=== PATIENT | male | born 1975 | race Two or more races ===

== ENCOUNTER 2025-07-10 08:35 | Day surgery (SDC) | payer BC ==
[2025-07-09 10:59] LABS: Hematocrit 44.7 % (41.0-53.0); Hemoglobin 15.1 g/dL (13.5-17.5); Mean Corpuscular Hemoglobin 31.4 pg (28.0-32.0); Mean Corpuscular Volume 92.8 fL (80.0-100.0); Nucleated Red Blood Cells % 0.2 %
[2025-07-09 11:22] LABS: INR 1.12 (0.9-1.15); Partial Thromboplastin Time 30.0 SEC (24.5-34.5); Prothrombin Time 11.7 sec (9.3-11.8)
[2025-07-09 11:40] LABS: Alanine Aminotransferase 16 U/L (7-40); Albumin 4.4 g/dL (3.2-4.8); Alkaline Phosphatase 49 U/L (46-116); Anion Gap 6 (5-15); BUN/Creatinine Ratio 8.5 (10.0-20.0); Blood Urea Nitrogen 10 mg/dL (9-23); Calcium 9.5 mg/dL (8.7-10.4); Carbon Dioxide 28 mmol/L (20-31); Chloride 106 mmol/L (98-107); Glucose 87 mg/dL (74-106); Potassium 4.5 mmol/L (3.5-5.1); Sodium 140 mmol/L (136-145); Total Protein 7.5 g/dL (5.7-8.2)
[2025-07-09 11:41] LABS: Bilirubin, Total 0.9 mg/dL (0.2-1.0)
[2025-07-09 11:50] LABS: Urine Protein, UAD Negative (Negative)
[~2025-07-10] VITALS: Ht 167.6 cm; Wt 68.0 kg
[2025-07-10] MEDS ORDERED: ceFAZolin 2 GM/D5W50ml 50 ML IV ONE (09:28)
[2025-07-10] MEDS ORDERED: KETAMINE 50mg/ML 1ml syringe ONE (11:24)
[2025-07-10] MEDS ORDERED: MIDAZOLAM HCL 2MG/2ML 2ml VIAL (1mg/ml) ONE (11:24)
[2025-07-10] MEDS ORDERED: PROPOFOL 10 MG/ML 20 ML IV ONE (11:29)
[2025-07-10] MEDS ORDERED: GLYCOPYRROLATE 0.2 MG/ML 1ML VIAL ONE (11:29)
[2025-07-10] MEDS ORDERED: ONDANSETRON HCL 4 MG/2 ML VIAL ONE (11:29)
[2025-07-10] MEDS ORDERED: KETOROLAC TROMETH 30 MG/ML 1ML VIAL ONE (11:29)
--- NOTE | 2025-07-10 12:24 | DVHNC2 ---
Procedure - OPERATIVE REPORT Pre-op. Diagnosis: Male Desired Sterilization Post-op. Diagnosis: Same as pre-op diagnosis Operation: Bilateral Vasectomy (No scalpel technique) Anesthesia: General Indications: INDICATION: Male Desired Sterilization CONSENT: The procedure was explained. Complications including but not limited to infection, bleeding, post-procedural swelling, potential for re-establishment of vas continuity and return of fertility were discussed. Informed consent was obtained. Details of Procedure: The patient was placed supine and general anesthesia is admininstered. His genitals were shaved, prepped, and draped in the surgical standard fashion. Using sterile techniques, bilateral vasectomy was performed using a non-scalpel technique after administration of local anesthetic using 1% Lidocaine with Epi. Both Vas Deferens were identified, brought to the surface of scrotal skin through midline puncture site, grasped, doubly clipped and ligated, the edges were fulgurated. Layer of adventitial tissue is placed between the two ends of the divided vas deferens. Hemostasis was obtained and both ends of the vas were returned to their respected locations inside the justice-scrotum. The skin puncture site is left open. Specimens: Bilateral Vas Segments Complications: None Findings: N/A Notes: DISPOSITION: Patient tolerated the procedure well and was discharged home. He will be prophylactically treated with appropriate antibiotics for 5-days. He has been instructed to refrain from sexual activity for 7-days, use scrotal support, and to apply ice pack to both justice-scrotum for 36-48 hours. He is then instructed to engage in at least 20 episodes of sexual ejaculatory episodes before obtaining a sperm analysis during a course of 4-6 weeks. Once he has been confirmed to have zero sperms count, he will then be considered sterile but he is required to use contraception until such time. Patient understands and will follow-up accordingly. BOUBACAR QURESHI MD Jul 10, 2025 12:24
--- NOTE | 2025-07-10 12:25 | DVHDS2 ---
New Physician D'charge PN Admitting Diagnosis Admitting Diagnosis Desired infertility Discharge Diagnosis Same Operations or Procedures Vasectomy Reason(s) For Hospitalization Surgery Treatment Plan Discharge Condition of Discharge Fair Disposition Home Discharge Instructions Diet: Regular Activity: Light activity Activity comment: No heavy exercise or activities x1 week Medications: Given Follow Up Care Follow Up/Referral: From count two Discharge Statement: "Patient was advised to return to the ER or call 911 if any headaches, dizzin ess, shortness of breath, chest pain, abdominal pain, bleeding, fevers, or worsening of medical condition. Patient was counseled about treatment plan, medications, possible side effects, patientverbalized understanding. All questions were answered to the best of my ability. This discharge took greater then 30 minutes in planning, reviewing documentation, counseling the patient, and discussing with other team members." BOUBACAR QURESHI MD Jul 10, 2025 12:25
[2025-07-10] MEDS: LIDOCAINE W/ EPINEPHRINE 1% 20ML VIAL ONE (12:30)
[2025-07-10] MEDS: BACITRACIN TOP OINT 1 UD PKG TOP ONE (12:35)
[2025-07-10 12:45] VITALS: PULSE 81; RESP 13; TEMP 97.8; O2SAT 97
[2025-07-10] MEDS ORDERED: ONDANSETRON HCL 4 MG/2 ML VIAL IV PRN (13:00)
[2025-07-10] MEDS ORDERED: HYDROmorphone HCL 2 MG/ML VL/or syr IV PRN (13:00)
[2025-07-10 13:30] VITALS: BP 139/79; PULSE 75; RESP 16; O2SAT 95
== END 2025-07-10 13:45 | disposition home or self-care (01) ==
LOC: SUR 08:35
PROVIDERS: ATTEND Urology
DX: Z30.2 Encounter for sterilization (principal); Z79.899 Other long term (current) drug therapy
CPT/HCPCS: 36415; 55250; 80053; 81001; 85025; 85610; 85730; 87086; 88305; A4649; J0690; J1885; J2250; J2405; J2704